=== PATIENT | male | born 1990 | race Caucasian/White ===

== ENCOUNTER 2016-12-10 09:56 | Emergency (ER) | payer OTHER ==
[~2016-12-10] VITALS: Ht 188 cm; Wt 81.6 kg
[2016-12-10] VITALS (9 sets, daily range): BP systolic 127–152; BP diastolic 70–88
[2016-12-10] MEDS ORDERED: Morphine Sulfate 4mg/ml Inj IVP ONE (10:15)
[2016-12-10] MEDS ORDERED: Propofol 10mg/ml 20ml IV ONE ×2 (10:40→11:30)
--- NOTE | 2016-12-10 11:25 | Diagnostic Imaging Report ---
Indication: Pain Findings: 3 views of the left shoulder were obtained. There is anterior dislocation of the glenohumeral joint demonstrated on the multiple views obtained. No definite fracture is identified. Impression: Anterior dislocation of the glenohumeral joint
[2016-12-10] MEDS ORDERED: IBUPROFEN600 MG ORAL (12:02)
[2016-12-10] MEDS ORDERED: ACETAMINOPHEN-1 EAC1 ORAL (12:02)
--- NOTE | 2016-12-10 12:30 | Diagnostic Imaging Report ---
Indication: Pain Findings: 2 views of the left shoulder were obtained. Alignment of the left shoulder is normal. No acute fracture is identified. Soft tissues are unremarkable. These of the humeral head is limited on this study. Impression: Grossly negative exam
--- NOTE | 2016-12-10 12:56 | Emergency Room Report ---
History of Present Illness General Chief Complaint: Upper Extremity Injury Source: Patient Present Illness HPI 26-year-old male presents ED complaining of left shoulder pain. States that he woke up this morning and his shoulder was dislocated. Patient is unsure when it happened. Likely happened while sleeping he says. Patient states pain is throbbing, 7/10, nonradiating. Patient went to urgent care initially and they did x-rays confirming dislocation but they are unable to reduce it. Denies any other injuries. Patient states that he previously dislocated his shoulder in August and had reduced. No other aggravating relieving factors. Denies any other associated Allergies: Coded Allergies: No Known Allergies (Unverified , 12/10/16) Patient History Past Medical History: none Past Surgical History: none Pertinent Family History: none Social History: Denies: smoking, alcohol use, drug use Immunizations: UTD Reviewed Nursing Documentation: PMH: Agreed, PSxH: Agreed Nursing Documentation-PMH Past Medical History: No Stated History Hx Cardiac Problems: No Hx Hypertension: No Review of Systems All Other Systems: negative except mentioned in HPI Physical Exam Vital Signs Date Time Temp Pulse Resp B/P (MAP) Pulse Ox O2 Delivery O2 Flow Rate FiO2 12/10/16 10:02 98.2 56 15 152/87 98 Room Air 12/10/16 11:06 2.0 Sp02 EP Interpretation: reviewed, normal General Appearance: no apparent distress, alert, GCS 15, non-toxic Head: normocephalic Eyes: bilateral eye normal inspection, bilateral eye PERRL ENT: normal ENT inspection Neck: normal inspection Respiratory: normal inspection Cardiovascular #1: normal inspection Gastrointestinal: normal inspection Rectal: deferred Genitourinary: no CVA tenderness Musculoskeletal: decreased range of motion, tender - L shoulder deformity Neurologic: alert, oriented x3, responsive, motor strength/tone normal, sensory intact, speech normal Psychiatric: normal inspection Skin: normal inspection Lymphatic: normal inspection Procedures Splinting Splinting : Consent: Verbal Splint: shoulder immobilizer Pre-Proc Neuro Vasc Exam: normal Post-Proc Neuro Vasc Exam: normal Patient Tolerated: Well Complications: None Joint Reduction Joint Reduction : Consent: Written Joint Reduction Site: shoulder (L) Procedural Sedation: Yes Reduction Attempts: One Pre-Procedure NV Exam: Yes Post-Procedure NV Exam: Yes Post Joint Reduction Film: joint reduced Patient Tolerated: Well Complications: None Procedural Sedation Consent: Written Pre-Sedation Assessment: Eval. Immed. Prior to Sed, Pre-proc Edu. done, Plan for Sedation Discuss Airway Assessment (Malampati): I Heart: normal Lungs: normal Abdomen: normal Extremities: normal Procedures/Plans: Closed Reduction Plan for Moderate Sedation: Propofol ASA Score: I Start Time: 11:00 End Time: 11:06 Total Time: 0006 Communication: No Apparent Limitation Mental Status: Awake Respiration: Unlabored Skin Condition: WNL Abdomen: WNL Nausea: NO Vomiting: NO Medical Decision Making Diagnostic Impression: Primary Impression: Shoulder dislocation Qualified Codes: S43.005A - Unspecified dislocation of left shoulder joint, initial encounter ER Course Hospital Course 26-year-old male presents to ED complaining of L shoulder pain Differential diagnoses include: Fracture, dislocation, sprain, contusion Clinical course Patient placed on stretcher. After initial history and physical I ordered pain medications and x-rays of L shoulder left shoulder x-ray shows dislocation Procedural sedation performed using propofol. Respiratory therapist at bedside. Patient stable vitals on manager supply. Shoulder reduced without complication. Placed in shoulder sling. Repeat shoulder x-ray shows adequate reduction. Patient states he feels better. Discussed findings with the patient. Stated that his shoulder is prone to dislocation ED with minimal effort. Patient does need to followup with orthopedics as outpatient. Patient states understanding of plan Diagnosis - shoulder dislocation Stable and discharged to home with prescription for Motrin, [place]. Followup with PMD/ortho. Return to ED if symptoms recur or worsen Other X-Ray Diagnostic Results Other X-Ray Diagnostic Results #1: X-Ray ordered: L shoulder # of Views/Limited Vs Complete: 3 View Indication: Pain EP Interpretation: Yes Interpretation: no soft tissue swelling, no fractures Impression: Other - L shoulder dislocation Interpreting ER Provider: Electronically signed by Nic Doe MD Other X-Ray Diagnostic Results #2: X-Ray ordered: Left shoulder # of Views/Limited Vs Complete: 2 View Indication: Other - status post reduction EP Interpretation: Yes Interpretation: no dislocation, no soft tissue swelling, no fractures Impression: No acute disease Interpreting ER Provider: Electronically signed by Nic Doe MD Last Vital Signs Date Time Temp Pulse Resp B/P (MAP) Pulse Ox O2 Delivery O2 Flow Rate FiO2 12/10/16 12:11 97.8 65 15 136/88 100 Room Air 8/31/17 11:06 2.0 Status: improved Disposition: HOME, SELF-CARE Condition: Stable Scripts Acetaminophen With Codeine (T#3) (TYLENOL #3 TAB*) Y Tab 1 TAB ORAL Q8H Y for For Pain, #20 TAB Prov: NIC DOE M.D. 12/10/16 Ibuprofen* (MOTRIN*) 600 Mg Tablet 600 MG ORAL Q8H Y for For Pain, #30 TAB 0 Refills Prov: NIC DOE M.D. 12/10/16 Referrals: [facility] Patient Instructions: Shoulder Dislocation, [id number] NIC DOE M.D. Dec 10, 2016 12:56
--- NOTE | 2016-12-10 15:06 | Emergency Room Report ---
History of Present Illness General Chief Complaint: Upper Extremity Injury Source: Patient Present Illness Allergies: Coded Allergies: No Known Allergies (Unverified , 12/10/16) Nursing Documentation-PMH Past Medical History: No Stated History Hx Cardiac Problems: No Hx Hypertension: No Physical Exam Vital Signs Date Time Temp Pulse Resp B/P (MAP) Pulse Ox O2 Delivery O2 Flow Rate FiO2 12/10/16 10:02 98.2 56 15 152/87 98 Room Air 12/10/16 11:06 2.0 Procedures Procedural Sedation Consent: Written Pre-Sedation Assessment: Eval. Immed. Prior to Sed, Pre-proc Edu. done, Plan for Sedation Discuss Airway Assessment (Malampati): I Heart: normal Lungs: normal Abdomen: normal Extremities: normal Procedures/Plans: Closed Reduction Plan for Moderate Sedation: Propofol ASA Score: I Start Time: 11:00 End Time: 11:06 Total Time: 0006 Communication: No Apparent Limitation Mental Status: Awake Respiration: Unlabored Skin Condition: WNL Abdomen: WNL Nausea: NO Vomiting: NO Additional Comments: total 100mg propofol. given in doses of 40mg, 40mg, and 20mg Medical Decision Making Diagnostic Impression: Primary Impression: Shoulder dislocation Qualified Codes: S43.005A - Unspecified dislocation of left shoulder joint, initial encounter Last Vital Signs Date Time Temp Pulse Resp B/P (MAP) Pulse Ox O2 Delivery O2 Flow Rate FiO2 12/10/16 12:11 97.8 65 15 136/88 100 Room Air 12/10/16 11:06 2.0 Disposition: HOME, SELF-CARE Condition: Stable Scripts Acetaminophen With Codeine (T#3) (TYLENOL #3 TAB*) Y Tab 1 TAB ORAL Q8H Y for For Pain, #20 TAB Prov: DEANGELO SOLORZANO M.D. 12/10/16 Ibuprofen* (MOTRIN*) 600 Mg Tablet 600 MG ORAL Q8H Y for For Pain, #30 TAB 0 Refills Prov: DEANGELO SOLORZANO M.D. 12/10/16 Referrals: [facility] Patient Instructions: Shoulder Dislocation, [id number] DEANGELO SOLORZANO M.D. Dec 10, 2016 15:06
== END 2016-12-10 12:23 | disposition home or self-care (01) ==
LOC: EMR 10:16
DX: S43.005A Unspecified dislocation of left shoulder joint, initial encounter (principal); X58.XXXA Exposure to other specified factors, initial encounter; Y93.9 Activity, unspecified; Y99.9 Unspecified external cause status; M25.512 Pain in left shoulder
CPT/HCPCS: 23655; 73030; 96374; 96375; 99284; J2270; J2704